=== PATIENT | female | born 1965 | race Caucasian/White ===

== ENCOUNTER → 2024-08-29 09:24 | Outpatient (REF) | payer OTHER, SELFPAY | LOC: RAD 09:24 | PROVIDERS: ATTENDING PHYSICIAN Nurse Practitioner Acute Care; FAMILY PHYSICIAN Family Medicine; REFERRING PHYSICIAN Thoracic Surgery (Cardiothoracic Vascular Surgery) | DX: Q24.5 Malformation of coronary vessels (principal); Z01.810 Encounter for preprocedural cardiovascular examination | CPT/HCPCS: 75572; Q9967 ==

== ENCOUNTER → 2024-10-30 10:23 | Outpatient (REF) | payer BC, OTHER, SELFPAY | LOC: HWRCS 10:23 | PROVIDERS: ATTENDING PHYSICIAN Internal Medicine Interventional Cardiology; FAMILY PHYSICIAN Family Medicine | DX: Q24.5 Malformation of coronary vessels (principal); E78.2 Mixed hyperlipidemia; Z82.49 Family history of ischemic heart disease and other diseases of the circulatory system | CPT/HCPCS: 93306 ==

== ENCOUNTER → 2024-11-15 08:27 | Outpatient (REF) | payer BC, OTHER, SELFPAY | LOC: HWRCS 08:27 | PROVIDERS: ATTENDING PHYSICIAN Internal Medicine Interventional Cardiology; FAMILY PHYSICIAN Family Medicine | DX: Q24.5 Malformation of coronary vessels (principal); E78.2 Mixed hyperlipidemia; Z82.49 Family history of ischemic heart disease and other diseases of the circulatory system | CPT/HCPCS: 78452; 93017; A9500 ==